=== PATIENT | female | born 1950 | race Caucasian/White ===

== ENCOUNTER 2021-02-17 11:50 | Emergency (ER) | payer MEDICARE, SELFPAY ==
[2021-02-17] VITALS (16 sets, daily range): BP systolic 85–155; BP diastolic 51–69; PULSE 60–90; RESP 14–22; TEMP 36.9; O2SAT 91–97; BMI 34.3
[2021-02-17 12:55] LABS: INR 1.1 (0.9-1.3); Prothrombin Time 12.6 SECONDS (10.1-12.7)
[2021-02-17 13:01] LABS: Alanine Aminotransferase 15 IU/L (<35); Albumin 3.5 g/dL (3.5-5.0); Albumin Globulin Ratio 1.1 (1.0-2.8); Alkaline Phosphatase 74 U/L (38-126); Aspartate Aminotransferase 27 IU/L (14-36); BUN Creatinine Ratio 20.4 (6-22); Blood Urea Nitrogen 21 mg/dL (7-17); Calcium 9.4 mg/dL (8.4-10.2); Carbon Dioxide 23 mmol/L (22-32); Chloride 105 mmol/L (98-107); Estimated Glomerular Filt Rate 53.1 mL/min (>60); Globulin 3.1 g/dL (1.7-4.1); Glucose 99 mg/dL (80-110); HEMOLYSIS < 15 (0-50); Potassium 3.7 mmol/L (3.4-5.1); Sodium 135 mmol/L (137-145); Total Protein 6.6 g/dL (6.3-8.2)
[2021-02-17 13:02] LABS: Add Manual Diff / Slide Review NO; Basophils Absolute Auto 100 /uL (0-100); Basophils Percent Auto 0.7 % (0-2); Eosinophils Absolute Auto 200 /uL (0-450); Hematocrit 38.5 % (36-46); Lymphocytes Absolute Auto 500 /uL (1100-4500); Mean Corpuscular HGB Conc 33.6 % (30-36); Mean Corpuscular Hemoglobin 32.2 PG (26-34); Mean Corpuscular Volume 95.6 fL (80-100); Monocytes Absolute Auto 400 /uL (0-900); Monocytes Percent Auto 5.7 % (3-14); Neutrophils Absolute Auto 6700 /uL (1500-7000); Neutrophils Percent Auto 85.6 % (50-75); Platelet Count 187 X10^3/uL (150-400); Red Blood Cell Count 4.03 X10^6/uL (4.0-5.2); Red Cell Distribution Width 13.4 % (11.6-14.8); White Blood Cell Count 7.9 X10^3/uL (4.5-11.0)
[2021-02-17] MEDS: SODIUM CHLORIDE 0.9% 1,000 ML 1000 ML IV (13:36)
--- NOTE | 2021-02-17 14:06 | ED.NAVMDI ---
HPI - Nausea/Vomiting/Diarrhea General Chief complaint: Nausea/Vomiting/Diarrhea Stated complaint: BEEN IN BED FOR BASICALLY A MONTH Time Seen by Provider: 02/17/21 13:08 Source: patient and family (Daughter) Mode of arrival: Wheelchair Limitations: no limitations History of Present Illness HPI Narrative: Patient is a 70-year-old female who is here in the emergency department with her daughter for evaluation of a decrease in activities, frequent urination, weakness. The symptoms have been going on for the past month. Daughter states that the reason they came in today was this is the 1st time that they had time to come in. The patient's daughter states that the patient has been urinating frequently. Gets up multiple times during the night to urinate. States that the only time that she gets up out of bed is to go and smoke and also to go in urinate. Has had decreased oral intake of both food and liquids. Patient states that she has no complaints. She is at her baseline mental status per her daughter who is at bedside. Related Data Previous Rx's Medication Instructions Recorded cephalexin 500 mg PO BID 7 Days #14 cap 02/17/21 nystatin 1 applic TOPICAL TID #30 g 02/17/21 Allergies Allergy/AdvReac Type Severity Reaction Status Date / Time Sulfa (Sulfonamide Allergy Verified 02/17/21 11:55 Antibiotics) Review of Systems Constitutional Constitutional: Denies headache(s) and Reports weakness ENT Ears, Nose, Mouth, and Throat: Denies headache(s) Cardiovascular Cardiovascular: Denies chest pain and Denies dyspnea Respiratory Respiratory: Denies dyspnea Gastrointestinal Gastrointestinal: Denies abdominal pain and Denies vomiting Genitourinary Comments: Urinary frequency Musculoskeletal Comments: Muscle weakness Neurologic Neurologic: Reports confusion (This is not new), Denies headache(s) and Reports weakness Psychiatric Psychiatric: Reports confusion (This is not new) Hematologic/Lymphatic On Anticoagulants: No Patient History Medical History Seizure disorder Surgical History No pertinent past surgical history Social History Smoking Status: Current every day smoker Smoking Status: Current every day smoker alcohol intake frequency: holidays/special occasions only Substance Use Type: does not use Exam Initial Vital Signs Initial Vital Signs: Vital Signs Temperature 98.4 F 02/17/21 11:55 Pulse Rate 79 02/17/21 11:55 Respiratory Rate 14 02/17/21 11:55 Blood Pressure 95/51 L 02/17/21 11:55 Pulse Oximetry 93 02/17/21 11:55 Const General: disheveled Other: Confused HENMT Head: normal to inspection and normocephalic Eyes General: appearance normal, both eyes and all related structures Resp Effort & Inspection: normal respiratory effort Auscultation: clear to auscultation bilaterally Cardio Rate: regular rate Rhythm: regular rhythm GI Inspection: non-distended Palpation: soft Skin Other: Patient with redness and superficial skin breakdown in between her legs in her upper thighs. Neuro General: patient alert, patient awake, oriented (Person and place but does not know year) and moves all extremities Extrem General: capillary refill normal Psych Appearance: disheveled Course Orders Ordered: ED Orders 02/17/21 12:35 Complete Blood Count AUTO DIFF Stat Comprehensive Metabolic Panel Stat Prothrombin Time INR Stat 02/17/21 13:36 Consult to [facility] [place] - [employer]ist Stat 02/17/21 14:10 Urinalysis and Microscopic Stat Urine Culture Stat 02/17/21 14:15 CT head/brain wo con Stat 02/17/21 15:19 Consult to Home Health Stat Discontinued Medications Cephalexin HCl (Cephalexin 250 Mg Capsule) 500 mg PO NOW ONE Stop: 02/17/21 15:33 Last Admin: 02/17/21 15:49 Dose: 500 mg Documented by: [email or web address] Sodium Chloride (Normal Saline 0.9%) 1,000 mls @ 1,000 mls/hr IV BOLUS ONE Stop: 02/17/21 14:35 Last Infusion: 02/17/21 16:23 Dose: 0 mls/hr Documented by: [email or web address] Admin: 02/17/21 13:36 Dose: 1,000 mls/hr Documented by: [email or web address] Vital Signs Vital signs: Vital Signs - 8 hr 02/17/21 11:55 02/17/21 12:42 02/17/21 12:46 Temperature 98.4 F Pulse Rate 79 68 69 Respiratory Rate 14 19 16 Blood Pressure 95/51 L 154/62 H Pulse Oximetry 93 94 93 02/17/21 13:00 02/17/21 13:30 02/17/21 13:35 Temperature Pulse Rate 77 64 65 Respiratory Rate 22 17 17 Blood Pressure 135/63 Pulse Oximetry 91 94 02/17/21 14:00 02/17/21 14:33 02/17/21 14:35 Temperature Pulse Rate 60 62 62 Respiratory Rate 17 Blood Pressure 155/56 H Pulse Oximetry 96 95 96 02/17/21 15:00 02/17/21 15:30 02/17/21 15:31 Temperature Pulse Rate 60 60 61 Respiratory Rate 15 17 17 Blood Pressure 154/69 H 147/65 H Pulse Oximetry 97 95 95 02/17/21 16:00 02/17/21 16:36 02/17/21 16:37 Temperature Pulse Rate 68 90 90 Respiratory Rate 22 Blood Pressure 85/54 L Pulse Oximetry 95 97 93 02/17/21 16:48 Temperature Pulse Rate 74 Respiratory Rate 18 Blood Pressure 89/59 L Pulse Oximetry 94 MDM - Nausea/Vomiting/Diarrhea Lab Data Attestation: I reviewed the patient's lab results. Result diagrams: 02/17/21 12:35 02/17/21 12:35 Labs: Lab Results 02/17/21 02/17/21 02/17/21 Range/Units 12:35 12:35 12:35 WBC 7.9 (4.5-11.0) X10^3/uL RBC 4.03 (4.0-5.2) X10^6/uL Hgb 13.0 (12.0-16.0) g/dL Hct 38.5 (36-46) % MCV 95.6 (80-100) fL MCH 32.2 (26-34) PG MCHC 33.6 (30-36) % RDW 13.4 (11.6-14.8) % Plt Count 187 (150-400) X10^3/uL Neut % (Auto) 85.6 H (50-75) % Lymph % (Auto) 6.0 L (25-40) % Morgan % (Auto) 5.7 (3-14) % Eos % (Auto) 2.0 (2-4) % Baso % (Auto) 0.7 (0-2) % Neut # (Auto) 6700 (1404-4600) /uL Lymph # (Auto) 500 L (4422-9041) /uL Morgan # (Auto) 400 (0-900) /uL Eos # (Auto) 200 (0-450) /uL Baso # (Auto) 100 (0-100) /uL PT 12.6 (10.1-12.7) SECONDS INR 1.1 (0.9-1.3) Sodium 135 L (137-145) mmol/L Potassium 3.7 (3.4-5.1) mmol/L Chloride 105 (98-107) mmol/L Carbon Dioxide 23 (22-32) mmol/L BUN 21 H (7-17) mg/dL Creatinine 1.03 (0.52-1.04) mg/dL Estimated GFR 53.1 L (>60) mL/min BUN/Creatinine Ratio 20.4 (6-22) Glucose 99 (80-110) mg/dL Calcium 9.4 (8.4-10.2) mg/dL Total Bilirubin 1.0 (0.2-1.3) mg/dL AST 27 (14-36) IU/L ALT 15 (<35) IU/L Alkaline Phosphatase 74 (38-126) U/L Total Protein 6.6 (6.3-8.2) g/dL Albumin 3.5 (3.5-5.0) g/dL Globulin 3.1 (1.7-4.1) g/dL Albumin/Globulin Ratio 1.1 (1.0-2.8) Urine Color Urine Appearance Urine pH (4.5-8.0) Ur Specific [place] (1.000-1.035) Urine Protein (Negative) Urine Glucose (UA) (Negative) g/dL Urine Ketones (NEGATIVE) Urine Occult Blood (Negative) Urine Nitrate (Negative) Urine Bilirubin (NEGATIVE) Urine Urobilinogen (0.2) E.U./dL Ur Leukocyte Esterase (NEGATIVE) Urine RBC (0-5/HPF) Urine WBC (0-5/HPF) Ur Squamous Epith Cells (0-5/HPF) Urine Bacteria (None) Ur Culture Indicated? 02/17/21 Range/Units 14:10 WBC (4.5-11.0) X10^3/uL RBC (4.0-5.2) X10^6/uL Hgb (12.0-16.0) g/dL Hct (36-46) % MCV (80-100) fL MCH (26-34) PG MCHC (30-36) % RDW (11.6-14.8) % Plt Count (150-400) X10^3/uL Neut % (Auto) (50-75) % Lymph % (Auto) (25-40) % Morgan % (Auto) (3-14) % Eos % (Auto) (2-4) % Baso % (Auto) (0-2) % Neut # (Auto) (6754-7257) /uL Lymph # (Auto) (1100-5827) /uL Morgan # (Auto) (0-900) /uL Eos # (Auto) (0-450) /uL Baso # (Auto) (0-100) /uL PT (10.1-12.7) SECONDS INR (0.9-1.3) Sodium (137-145) mmol/L Potassium (3.4-5.1) mmol/L Chloride (98-107) mmol/L Carbon Dioxide (22-32) mmol/L BUN (7-17) mg/dL Creatinine (0.52-1.04) mg/dL Estimated GFR (>60) mL/min BUN/Creatinine Ratio (6-22) Glucose (80-110) mg/dL Calcium (8.4-10.2) mg/dL Total Bilirubin (0.2-1.3) mg/dL AST (14-36) IU/L ALT (<35) IU/L Alkaline Phosphatase (38-126) U/L Total Protein (6.3-8.2) g/dL Albumin (3.5-5.0) g/dL Globulin (1.7-4.1) g/dL Albumin/Globulin Ratio (1.0-2.8) Urine Color Yellow Urine Appearance Sl cloudy Urine pH 5.5 (4.5-8.0) Ur Specific [place] 1.010 (1.000-1.035) Urine Protein Negative (Negative) Urine Glucose (UA) Negative (Negative) g/dL Urine Ketones Trace H (NEGATIVE) Urine Occult Blood 1+ H (Negative) Urine Nitrate Negative (Negative) Urine Bilirubin Negative (NEGATIVE) Urine Urobilinogen 0.2 (0.2) E.U./dL Ur Leukocyte Esterase 2+ H (NEGATIVE) Urine RBC 1-5/hpf (0-5/HPF) Urine WBC 5-10/hpf H (0-5/HPF) Ur Squamous Epith Cells 1-5 /hpf (0-5/HPF) Urine Bacteria Occasional (0-1) (None) Ur Culture Indicated? Specimen cultured Imaging Data CT scan - head: Radiologist's Impression: [address] [id number] Scan ReportSigned Patient: Trinity Ames AMR#: [id number]: 1950cct:[id number]/Sex: 70 / FDate of Service: 02/17/21Loc: EDAccession Number: [id number] Procedure: CT head/brain wo con Ordering Provider: Chadwick Najera D.O. PROCEDURE: CT HEAD/BRAIN WO CON INDICATIONS: hx of cancer and weakness TECHNIQUE: Noncontrast 4.5 mm thick angled axial sections acquired from the foramen magnum to the vertex, with coronal and sagittal reformats. For radiation dose reduction, the following was used: automated exposure control, adjustment of mA and/or kV according to patient size. COMPARISON: None. FINDINGS: Image quality: Excellent. CSF spaces: Basal cisterns are patent. No extra-axial fluid collections. Ventricles are normal in size and shape but there is a cystic structure separate from the posterior 3rd of the left lateral ventricle, above the atrium of the lateral ventricle, with either calcification or possible small surgical clips at the interface best seen on sagittal imaging. However, a craniotomy a site is not seen and therefore calcifications are considered the more likely cause. No adjacent vasogenic edema or similar smaller lesion elsewhere is found.. Brain: No midline shift. No intracranial masses or hemorrhage. Serna-white matter interface is normal. Skull and face: Calvarium and visualized facial bones are intact, without suspicious lesions. Sinuses: Visualized sinuses and mastoids are clear. IMPRESSION: A comparison brain MRI or CT scan is not available for review. There is a large cyst-like structure within the posterior parietal lobe measuring up to 4.1 x 3.3 x 4.1 cm without adjacent vasogenic edema or visualized mural nodularity on this noncontrast CT scan. The clinical history indicates prior history of cancer. There may be additional information available regarding outside prior CT or MR scanning of the brain. Obtaining such studies would be valuable for review. Additionally, contrast-enhanced MR scanning of the brain likely is warranted given this finding. Cystic neoplasm, either primary or metastatic, is a potential cause. Dictated by: Patrick Armstrong M.D. on 02/17/2021 at 14:39 Approved by: Patrick Armstrong M.D. on 02/17/2021 at 14:44 MDM Narrative Medical decision making narrative: Presenting symptoms today seem to been going on for least a month. She is at her baseline neurologic status per her daughter who is at bedside. Her urinalysis is consistent with a urinary tract infection given her urinary frequency. Will treat her with antibiotics for this. Her skin in her upper inner thighs is also consistent with breakdown most likely from frequent urination. It has the appearance of a diaper rash. Also has foul smell consistent with a yeast infection. Will send home with nystatin cream we also discussed the use of barrier creams. Patient and daughter was seen by social work. We will try to get home health establish for the patient. Also attempted to contact the patient's primary doctor to move up an appointment and they stated that they will contact the patient to do so. Given the chronicity of the patient's symptoms I do not feel that admission to the hospital is warranted at this visit. They were given return precautions and follow-up instructions. They expressed understanding and agreement. Discharge Plan Departure Patient Disposition: Home Clinical Impression: Urinary tract infection, Skin yeast infection Instructions: DI for Urinary Tract Infection (UTI) Activity Restrictions/Additional Instructions: Recommend that you take the antibiotics as directed. Also recommend the nystatin cream for the redness area between your legs. I also recommend barrier cream and treating the area like a diaper rash. You should be receiving a call from your primary doctor's office for a new appointment. Return to the emergency department for any new or worsening symptoms Prescriptions: New cephalexin 500 mg capsule 500 mg PO BID 7 Days Qty: 14 RF: 0 nystatin 100,000 unit/gram cream 1 applic topical TID Qty: 30 RF: 2 Referrals: Av Brizuela MD [Primary Care Provider] -
--- NOTE | 2021-02-17 14:15 | DI.CT.S_ITS ---
PROCEDURE: CT HEAD/BRAIN WO CON INDICATIONS: hx of cancer and weakness TECHNIQUE: Noncontrast 4.5 mm thick angled axial sections acquired from the foramen magnum to the vertex, with coronal and sagittal reformats. For radiation dose reduction, the following was used: automated exposure control, adjustment of mA and/or kV according to patient size. COMPARISON: None. FINDINGS: Image quality: Excellent. CSF spaces: Basal cisterns are patent. No extra-axial fluid collections. Ventricles are normal in size and shape but there is a cystic structure separate from the posterior 3rd of the left lateral ventricle, above the atrium of the lateral ventricle, with either calcification or possible small surgical clips at the interface best seen on sagittal imaging. However, a craniotomy a site is not seen and therefore calcifications are considered the more likely cause. No adjacent vasogenic edema or similar smaller lesion elsewhere is found.. Brain: No midline shift. No intracranial masses or hemorrhage. Serna-white matter interface is normal. Skull and face: Calvarium and visualized facial bones are intact, without suspicious lesions. Sinuses: Visualized sinuses and mastoids are clear. IMPRESSION: A comparison brain MRI or CT scan is not available for review. There is a large cyst-like structure within the posterior parietal lobe measuring up to 4.1 x 3.3 x 4.1 cm without adjacent vasogenic edema or visualized mural nodularity on this noncontrast CT scan. The clinical history indicates prior history of cancer. There may be additional information available regarding outside prior CT or MR scanning of the brain. Obtaining such studies would be valuable for review. Additionally, contrast-enhanced MR scanning of the brain likely is warranted given this finding. Cystic neoplasm, either primary or metastatic, is a potential cause. Dictated by: Patrick Armstrong M.D. on 02/17/2021 at 14:39 Approved by: Patrick Armstrong M.D. on 02/17/2021 at 14:44
[2021-02-17 14:36] LABS: Appearance Urine UA SL CLOUDY; Bilirubin Urine UA NEGATIVE (NEGATIVE); Color Urine UA YELLOW; Glucose Urine UA NEGATIVE (Negative); Ketones Urine UA TRACE (NEGATIVE); Leukocyte Esterase Urine UA 2+ (NEGATIVE); Nitrite Urine UA NEGATIVE (Negative); Occult Blood Urine UA 1+ (Negative); Protein Urine UA NEGATIVE (Negative); Urobilinogen Urine UA 0.2 E.U./dL (0.2)
[2021-02-17 14:41] LABS: pH Urine UA 5.5 (4.5-8.0)
[2021-02-17 14:56] LABS: Bacteria Urine Occasional (0-1); Culture Indicated Urine Specimen Cultured; RBC Urine 1-5/HPF (0-5/HPF); Squamous Epithelial Cell Urine 1-5 /HPF (0-5/HPF); WBC Urine 5-10/HPF (0-5/HPF)
--- NOTE | 2021-02-17 15:22 | CM.SWNOTE ---
Addendum entered by Jonathan Guzman 02/17/21 17:28: SAFETY REPRESENTATIVE faxes referral to [facility] at [phone]. JARAD Cheek Original Note: SAFETY REPRESENTATIVE Note SAFETY REPRESENTATIVE consult requested for patient. Patient is a 70 y/o female who presents to this ED for increasing weakness, increased difficulty with mobility, and urinary concerns. Patient presents to this ED with daughter, and her insurance is listed as [employer]. SAFETY REPRESENTATIVE and Dr. Najera enter room and meet with patient and daughter. Patient is oriented to self and place. Patient is unable to state the year but does state the current president on second guess. Patient is unable to state why she is in ED. Most history comes from patient?s daughter, CURTIS Nance. Lee Ann explains that patient lives with Lee Ann, and they are finishing a fully ADA bathroom in the lower half of their home. Lee Ann reports the lower half of home is very accessible. 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 Lee Ann reports that patient?s current level of confusion is consistent with baseline. Lee Ann reports that patient has been sleeping ?most of the time? every day for past 3 weeks. Lee Ann reports that patient is only getting out of bed for urination and to smoke. Lee Ann reports that patient is stating she needs to urinate every 15 minutes. Lee Ann reports a decline in patient?s mobility, stating that she was previously able to move readily with the help of her cane, and in the past 4 weeks has had difficulty moving with help of a walker. Lee Ann reports that they have an appt. with Dr. Brizuela at [facility], but that they will not be able to meet with him for nearly a month and a half. SAFETY REPRESENTATIVE offers to contact office, and Lee Ann agrees. Lee Ann explains she works in LTC and is familiar with resources. Lee Ann explains that patient?s insurance won?t cover a home care attendant. SAFETY REPRESENTATIVE discusses HH. Patient agrees to HH. Lee Ann states no preference and SAFETY REPRESENTATIVE informs Lee Ann that HH agency on rotation is [facility]. All parties agreeable to referral. SAFETY REPRESENTATIVE calls IF, who state that they will try to get an earlier appt. for patient call Lee Ann if that is possible. [facility] states they will inform SAFETY REPRESENTATIVE if they are able to do this as well. SAFETY REPRESENTATIVE obtains signature on F2F form from ED provider Dr. Najera and provides Medicare choice list to patient and daughter. SAFETY REPRESENTATIVE updates patient, daughter, and ED Provider Dr. Najera on the above. Plan: Per Dr. Najera, current plan is for patient to D/C to home with follow up from PCP and home health. SAFETY REPRESENTATIVE to send referral to [facility]. JARAD Cheek
[2021-02-17] MEDS: cephALEXin 250 MG CAPSULE 500 MG PO (15:49)
== END 2021-02-17 16:52 | disposition home or self-care (01) ==
PROVIDERS: Emergency Provider Emergency Medicine; PCP Family Medicine
DX: N39.0 Urinary tract infection, site not specified (principal); B37.2 Candidiasis of skin and nail; R41.0 Disorientation, unspecified
CPT/HCPCS: 36415; 70450; 80053; 81001; 85025; 85610; 87086; 96360; 96361; 99284

== ENCOUNTER → 2021-03-11 14:19 | Outpatient (CLI) | payer MEDICARE, SELFPAY | PROVIDERS: PCP Family Medicine; Referring Provider Family Medicine; Visit Provider Nurse Practitioner Family | DX: L30.4 Erythema intertrigo (principal); R32 Unspecified urinary incontinence; F03.91 Unspecified dementia, unspecified severity, with behavioral disturbance | CPT/HCPCS: 99203; 99214 ==

== ENCOUNTER 2021-03-17 09:26 | Emergency (ER) | payer MEDICARE, SELFPAY ==
[2021-03-17 09:49] VITALS: BP 101/55; PULSE 60; RESP 16; TEMP 36.8; O2SAT 91; BMI 34.3
--- NOTE | 2021-03-17 10:04 | ED.GENADULT ---
HPI - General Adult General Chief complaint: Dental/Oral Stated complaint: LT CHEEK SWOLLEN Time Seen by Provider: 03/17/21 09:53 Source: patient and family Mode of arrival: Ambulatory Limitations: no limitations History of Present Illness HPI narrative: Patient is a 70-year-old female who I evaluated the emergency department in the past for other reasons who is here with her daughter for evaluation of swelling to the left side of her face. Daughter states she noticed it this morning. The patient has no symptoms. She does have poor dentition and has seen a dentist in the past but most of her dental issues have been on the right side and the swelling today is on the left side. Patient is not have any problems breathing or swallowing. There is no skin changes over the area. Related Data Previous Rx's Medication Instructions Recorded nystatin 1 applic TOPICAL TID #30 g 02/17/21 fluconazole [Diflucan] 150 mg PO DAILY #3 tab 03/17/21 penicillin V potassium 500 mg PO QID 7 Days #28 tab 03/17/21 Allergies Allergy/AdvReac Type Severity Reaction Status Date / Time Sulfa (Sulfonamide Allergy Unknown Verified 03/17/21 09:49 Antibiotics) Review of Systems Constitutional Constitutional: Denies fever(s) ENT Comments: No dental pain, swelling left side of face Cardiovascular Cardiovascular: Denies dyspnea Respiratory Respiratory: Denies dyspnea Integumentary/Breasts Skin/Breast: Denies rash Neurologic Neurologic: Reports system reviewed and no additional complaints, except as documented Hematologic/Lymphatic On Anticoagulants: No Allergic/Immunologic Allergic/Immunologic: Reports system reviewed and no additional complaints, except as documented Patient History Medical History Seizure disorder Surgical History No pertinent past surgical history Social History Smoking Status: Current every day smoker Smoking Status: Current every day smoker tobacco type: cigarettes alcohol intake frequency: holidays/special occasions only Substance Use Type: does not use Exam Initial Vital Signs Initial Vital Signs: Vital Signs Temperature 98.2 F 03/17/21 09:49 Pulse Rate 60 03/17/21 09:49 Respiratory Rate 16 03/17/21 09:49 Blood Pressure 101/55 L 03/17/21 09:49 Pulse Oximetry 91 03/17/21 09:49 Const General: cooperative and comfortable HENMT Head: normal to inspection and normocephalic Ears: TM's normal bilaterally Nose: external nose normal Face and sinus: no erythema and fluctuance (Left maxillary area) Mouth: moist mucous membranes Teeth and gingiva: poor dentition Throat: posterior oropharynx normal Resp Effort & Inspection: normal respiratory effort Auscultation: clear to auscultation bilaterally Cardio Rate: regular rate Rhythm: regular rhythm Skin Lesions: no lesions Rashes: no rashes Neuro General: patient alert and patient awake Extrem General: normal to inspection Psych Appearance: grossly normal Course Vital Signs Vital signs: Vital Signs - 8 hr 03/17/21 09:49 Temperature 98.2 F Pulse Rate 60 Respiratory Rate 16 Blood Pressure 101/55 L Pulse Oximetry 91 Medical Decision Making [facility] Narrative Medical decision making narrative: Patient does have poor dentition however there is no specific signs of dental infections on the inside of her mouth. There is no abscess noted. There is a 2 cm area of fluctuance in the left mandibular area 0 which is consistent with a dental abscess. There is no signs of any trauma. Her left eye is unremarkable. Plan will be is to place her on antibiotics. Will also give Diflucan as she frequently gets yeast infections with antibiotics. Patient and daughter were instructed that she does need to contact her dentist for follow-up. They were given return precautions. They expressed understanding and agreement. Discharge Plan Departure Patient Disposition: Home Clinical Impression: Dental abscess Instructions: Tooth Abscess Activity Restrictions/Additional Instructions: The findings today are consistent with a left-sided dental abscess. Unfortunately there is nothing that can be drained here in the emergency department. I do recommend that you contact her dentist for a follow-up. We will start on antibiotics. Return to the emergency department for any new or worsening symptoms Prescriptions: New penicillin V potassium 500 mg tablet 500 mg PO QID 7 Days Qty: 28 RF: 0 fluconazole [Diflucan] 150 mg tablet 150 mg PO DAILY Qty: 3 RF: 0 No Action nystatin 100,000 unit/gram cream 1 applic topical TID Qty: 30 RF: 2 Referrals: Av Brizuela MD [Primary Care Provider] -
[2021-03-17 10:12] VITALS: BP 97/61; PULSE 60; RESP 20; O2SAT 92
== END 2021-03-17 10:18 | disposition home or self-care (01) ==
PROVIDERS: Emergency Provider Emergency Medicine; PCP Family Medicine
DX: K04.7 Periapical abscess without sinus (principal)
CPT/HCPCS: 99281

== ENCOUNTER 2022-01-23 11:09 | Emergency (ER) | payer MEDICARE, OTHER, SELFPAY ==
[2022-01-23] VITALS (11 sets, daily range): BP systolic 128–148; BP diastolic 61–84; PULSE 69–77; O2SAT 92–95
--- NOTE | 2022-01-23 12:05 | DI.RAD.S_ITS ---
PROCEDURE: XR CHEST 1V INDICATIONS: suspected sepsis TECHNIQUE: One view of the chest was acquired. COMPARISON: None. FINDINGS: Surgical changes and devices: Left CT injectable port a catheter. Lungs and pleura: No consolidation, pleural effusions or pneumothorax. Mediastinum: Mediastinal contours appear normal. Heart size is normal. Bones and chest wall: No suspicious bony lesions. Overlying soft tissues appear unremarkable. Elevation of the right diaphragm. IMPRESSION: No acute cardiopulmonary abnormality. Dictated by: Jayden Holder M.D. on 01/23/2022 at 12:54 Approved by: Jayden Holder M.D. on 01/23/2022 at 12:54
--- NOTE | 2022-01-23 12:08 | ED.SEPSIS ---
HPI - Sepsis General Chief Complaint: Altered Mental Status Mode of arrival: Ambulatory Source: patient Limitations: no limitations Evaluation Sepsis Screen: No Definite Risk Sepsis Infection Criteria Present: None Narrative: 71-year-old female smoker with history of dementia and vulvar cancer that has been untreated for the past 5 years presents with her daughter who is her POA. She had been treated as an outpatient with antibiotics for a urinary tract infection but symptoms are worsening. She lives at home with family and has been in decline for least the last week. She stopped pursuing treatment for her cancer because she just wanted to be done. She has had no obvious fever or chills. She has had no chest pain or shortness of breath. She has been fatigued and had little to eat or drink over the course of at least the past few days. The patient is a very poor historian and any history comes from daughter Review of Systems Review of Systems ROS Unobtainable: All systems reviewed & are unremarkable except as noted in HPI and below Patient History Medical History Seizure disorder Surgical History No pertinent past surgical history S/P total abdominal hysterectomy Social History Smoking Status: Current every day smoker Smoking Status: Current every day smoker tobacco type: cigarettes alcohol intake frequency: holidays/special occasions only Substance Use Type: does not use Exam Narrative Exam Narrative: GENERAL: [71] year old patient appears stated age. Well-developed patient, in mild distress. Pleasantly confused, clearly unwell HEAD: Atraumatic. Normocephalic. EYES: Pupils equal round and reactive. Extraocular motions intact. No scleral icterus. No injection or drainage. ENT: Dry mucous membranes Nose without bleeding, purulent drainage. Throat without erythema, tonsillar hypertrophy or exudate. Airway patent. NECK: Trachea midline. Non tender CARDIOVASCULAR: Regular rate and rhythm without murmurs, gallops, or rubs. RESPIRATORY: Clear to auscultation. Breath sounds equal bilaterally. No wheezes, rales, or rhonchi. GASTROINTESTINAL: Abdomen soft, non-tender, nondistended. PELVIC: External genitalia examined with female nursing member of the legislative council, family permission. There is extensive fungating lesion in perineum c/w prior diagnosis of vulvar cancer. EXTREMITIES: No edema or joint tenderness. BACK: Nontender without deformity or crepitance. No flank tenderness. NEURO: Pleasantly confused, cranial nerves 2-12 grossly intact SKIN: No rash or erythema of visible areas Initial Vital Signs Initial Vital Signs: Vital Signs Blood Pressure 128/66 01/23/22 11:39 Course Orders Ordered: Discontinued Medications Sodium Chloride (Normal Saline 0.9%) 1,000 mls @ 1,000 mls/hr IV BOLUS ONE Stop: 01/23/22 13:04 Last Infusion: 01/23/22 13:22 Dose: 0 mls/hr Documented by: Admin: 01/23/22 12:18 Dose: 1,000 mls/hr Documented by: ANA Sodium Chloride (Normal Saline 0.9%) 1,000 mls @ 1,000 mls/hr IV BOLUS ONE Stop: 01/23/22 15:10 Last Infusion: 01/23/22 15:22 Dose: 0 mls/hr Documented by: Admin: 01/23/22 14:14 Dose: 1,000 mls/hr Documented by: PRISCILLA Lorazepam (Lorazepam 2 Mg/Ml Inj) 0.5 mg IV NOW ONE Stop: 01/23/22 12:10 Last Admin: 01/23/22 12:17 Dose: 0.5 mg Documented by: ANA Lorazepam (Lorazepam 2 Mg/Ml Inj) 0.5 mg IV NOW ONE Stop: 01/23/22 12:32 Last Admin: 01/23/22 12:30 Dose: 0.5 mg Documented by: ANA Consultations Consultation #1: discussed with family and call placed to PRINTED CIRCUIT BOARD PCB DESIGNER for bedside exam to help give some context and expectations to family for assistant terminal manager planning Consultation #2: Dr. Brizuela (PCP) contacted to help with assistant terminal manager planning. JOB ANALYSIS MANAGER consulted, please see their note for details Vital Signs Vital signs: Vital Signs - 8 hr 01/23/22 11:39 01/23/22 12:35 01/23/22 12:39 Pulse Rate 77 74 Blood Pressure 128/66 148/67 H Pulse Oximetry 95 92 01/23/22 14:10 01/23/22 14:11 Pulse Rate 72 74 Blood Pressure 136/84 Pulse Oximetry 94 94 Sepsis Guideline Criteria Level 1 - Infection Sepsis Infection Criteria Present: None Treatment Initiated Antibiotics:: IV antimicrobials will be initiated as soon as possible after recognition of sepsis state and within one hour for both sepsis and septic shock. MDM - Sepsis Lab Data Result diagrams: 01/23/22 11:55 01/23/22 15:50 Labs: Lab Results 01/23/22 01/23/22 01/23/22 Range/Units 11:55 11:55 11:55 WBC 8.3 (4.5-11.0) X10^3/uL RBC 4.44 (4.0-5.2) X10^6/uL Hgb 13.7 (12.0-16.0) g/dL Hct 42.0 (36-46) % MCV 94.5 (80-100) fL MCH 30.8 (26-34) PG MCHC 32.6 (30-36) % RDW 13.8 (11.6-14.8) % Plt Count 265 (150-400) X10^3/uL Neut % (Auto) 83.3 H (50-75) % Lymph % (Auto) 8.5 L (25-40) % [place] % (Auto) 6.8 (3-14) % Eos % (Auto) 0.6 L (2-4) % Baso % (Auto) 0.8 (0-2) % Neut # (Auto) 6900 (2790-2254) /uL Lymph # (Auto) 700 L (2758-9776) /uL [place] # (Auto) 600 (0-900) /uL Eos # (Auto) 100 (0-450) /uL Baso # (Auto) 100 (0-100) /uL Sodium 139 (137-145) mmol/L Potassium 5.5 H (3.4-5.1) mmol/L Chloride 110 H (98-107) mmol/L Carbon Dioxide 17 L (22-32) mmol/L BUN 61 H (7-17) mg/dL Creatinine 2.78 H (0.52-1.04) mg/dL Estimated GFR 16.8 L (>60) mL/min BUN/Creatinine Ratio 21.9 (6-22) Glucose 118 H (80-110) mg/dL Lactate 1.3 (0.7-2.1) mmol/L Calcium 9.8 (8.4-10.2) mg/dL Total Bilirubin 0.6 (0.2-1.3) mg/dL AST 32 (14-36) IU/L ALT 20 (<35) IU/L Alkaline Phosphatase 85 (38-126) U/L Total Protein 8.4 H (6.3-8.2) g/dL Albumin 4.6 (3.5-5.0) g/dL Globulin 3.8 (1.7-4.1) g/dL Albumin/Globulin Ratio 1.2 (1.0-2.8) Lipase 84 (23-300) U/L Procalcitonin 0.13 (<0.5) ng/mL SARS-CoV-2 (PCR) (Negative) 01/23/22 01/23/22 Range/Units 13:49 15:50 WBC (4.5-11.0) X10^3/uL RBC (4.0-5.2) X10^6/uL Hgb (12.0-16.0) g/dL Hct (36-46) % MCV (80-100) fL MCH (26-34) PG MCHC (30-36) % RDW (11.6-14.8) % Plt Count (150-400) X10^3/uL Neut % (Auto) (50-75) % Lymph % (Auto) (25-40) % [place] % (Auto) (3-14) % Eos % (Auto) (2-4) % Baso % (Auto) (0-2) % Neut # (Auto) (5527-0057) /uL Lymph # (Auto) (3104-8560) /uL [place] # (Auto) (0-900) /uL Eos # (Auto) (0-450) /uL Baso # (Auto) (0-100) /uL Sodium 140 (137-145) mmol/L Potassium 5.1 (3.4-5.1) mmol/L Chloride 113 H (98-107) mmol/L Carbon Dioxide 17 L (22-32) mmol/L BUN 58 H (7-17) mg/dL Creatinine 2.34 H (0.52-1.04) mg/dL Estimated GFR 20.6 L (>60) mL/min BUN/Creatinine Ratio 24.8 H (6-22) Glucose 92 (80-110) mg/dL Lactate (0.7-2.1) mmol/L Calcium 8.5 (8.4-10.2) mg/dL Total Bilirubin (0.2-1.3) mg/dL AST (14-36) IU/L ALT (<35) IU/L Alkaline Phosphatase (38-126) U/L Total Protein (6.3-8.2) g/dL Albumin (3.5-5.0) g/dL Globulin (1.7-4.1) g/dL Albumin/Globulin Ratio (1.0-2.8) Lipase (23-300) U/L Procalcitonin (<0.5) ng/mL SARS-CoV-2 (PCR) Negative (Negative) Imaging Data CT scan - abdomen/pelvis: Radiologist's Impression: [address] [address] [address] Scan Report Addendum Patient: Trinity Ames MR#: [id number] : 1950 Acct:[id number] Age/Sex: 71 / F Date of Service: 01/23/22 Loc: ED Accession Number: [id number] ?? Procedure: CT abdomen pelvis wo con Ordering Provider: Arben Eaton D.O. ADDENDUMThis report includes an Addendum and supersedes previous reports for this exam. ? ? ? PROCEDURE:? CT ABDOMEN PELVIS WO CON ? INDICATIONS:? acute kidney injury, obstruction? ? TECHNIQUE:? Noncontrast 5 mm thick sections acquired from the diaphragms to the symphysis.? 5 mm coronal and sagittal reformats were then performed.? For radiation dose reduction, the following was used:? automated exposure control, adjustment of mA and/or kV according to patient size.? ? COMPARISON:? None. ? FINDINGS:? Image quality:? Breathing motion artifact somewhat limits evaluation. ? ABDOMEN:? Lung bases:? Lung bases are clear.? Heart size is normal.? ? Solid organs:? Liver is normal in size.? Calcified gallstones are visualized within the gallbladder fundus.? There are likely stones within the cystic duct as well which is poorly characterized given motion artifact.? Pancreas is normal in contours.? Spleen is normal in size.? The right adrenal gland is unremarkable.? There is thickening of the medial limb of the left adrenal gland.? However, no discrete nodule is visualized.? Kidneys are normal in size, without hydronephrosis or nephrolithiasis.? ? Peritoneum and bowel:? Unenhanced bowel loops demonstrate normal wall thickness and caliber.? Liquid stool is present within the colon. There are scattered sigmoid diverticula. No evidence for diverticulitis.? No free fluid or air.? ? Nodes and vessels:? No retroperitoneal or mesenteric adenopathy by size criteria.? Aorta and inferior vena cava are normal in caliber.? There are scattered atheromatous calcifications throughout the aorta and iliac arteries bilaterally. ? Miscellaneous:? No ventral hernias.? ? ? PELVIS:? Genitourinary:? Bladder wall thickness is normal.? ? Miscellaneous:? No inguinal hernias or adenopathy.? ? Bones:? No suspicious bony lesions.? No vertebral body compression fractures.? Left hip arthroplasty is grossly intact. ? IMPRESSION:? ? 1. No acute intra-abdominal findings.? Diverticulosis.? No acute diverticulitis.? Liquid stool within the distal colon. ? 2. Questionable thickening of the medial limb of the left adrenal gland.? Although no discrete mass is visualized, adenoma or neoplasm cannot be excluded.? If further characterization is warranted, adrenal mass protocol CT could be used.? ? ? Dictated by: Adeline Brunson M.D. on 01/23/2022 at 13:03 ? ? Approved by: Adeline Brunson M.D. on 01/23/2022 at 13:31 ? ? ? ADDENDUM: ? 3. Cholelithiasis and stones likely present within the cystic duct.? No gallbladder wall thickening or biliary ductal dilatation to suggest choledocholithiasis.? ? Dictated by: Adeline Brunson M.D. on 01/23/2022 at 14:01 ? ? Approved by: Adeline Brunson M.D. on 01/23/2022 at 14:02 ? Addendum Dictated By: Adeline Brunson MD Addendum Signed By: Addendum Cosigned By: DD/ /05/1406 TD/TT: 01/23/2209/05/1406 PROCEDURE:? CT ABDOMEN PELVIS WO CON ? INDICATIONS:? acute kidney injury, obstruction? ? TECHNIQUE:? Noncontrast 5 mm thick sections acquired from the diaphragms to the symphysis.? 5 mm coronal and sagittal reformats were then performed.? For radiation dose reduction, the following was used:? automated exposure control, adjustment of mA and/or kV according to patient size.? ? COMPARISON:? None. ? FINDINGS:? Image quality:? Breathing motion artifact somewhat limits evaluation. ? ABDOMEN:? Lung bases:? Lung bases are clear.? Heart size is normal.? ? Solid organs:? Liver is normal in size.? Calcified gallstones are visualized within the gallbladder fundus.? There are likely stones within the cystic duct as well which is poorly characterized given motion artifact.? Pancreas is normal in contours.? Spleen is normal in size.? The right adrenal gland is unremarkable.? There is thickening of the medial limb of the left adrenal gland.? However, no discrete nodule is visualized.? Kidneys are normal in size, without hydronephrosis or nephrolithiasis.? ? Peritoneum and bowel:? Unenhanced bowel loops demonstrate normal wall thickness and caliber.? Liquid stool is present within the colon. There are scattered sigmoid diverticula. No evidence for diverticulitis.? No free fluid or air.? ? Nodes and vessels:? No retroperitoneal or mesenteric adenopathy by size criteria.? Aorta and inferior vena cava are normal in caliber.? There are scattered atheromatous calcifications throughout the aorta and iliac arteries bilaterally. ? Miscellaneous:? No ventral hernias.? ? ? PELVIS:? Genitourinary:? Bladder wall thickness is normal.? ? Miscellaneous:? No inguinal hernias or adenopathy.? ? Bones:? No suspicious bony lesions.? No vertebral body compression fractures.? Left hip arthroplasty is grossly intact. ? IMPRESSION:? ? 1. No acute intra-abdominal findings.? Diverticulosis.? No acute diverticulitis.? Liquid stool within the distal colon. ? 2. Questionable thickening of the medial limb of the left adrenal gland.? Although no discrete mass is visualized, adenoma or neoplasm cannot be excluded.? If further characterization is warranted, adrenal mass protocol CT could be used.? ? ? Dictated by: Adeline Brunson M.D. on 01/23/2022 at 13:03 ? ? Approved by: Adeline Brunson M.D. on 01/23/2022 at 13:31? MDM Narrative Medical decision making narrative: Patient with chronic illness and untreated cancer presents appearing ill. She has significant kidney injury, presumably prerenal as she appears quite dehydrated and numbers do improve with fluids. Patient would not want to consider any significant intervention, surgery or treatment for her vulvar cancer. We have at extensive involvement of various resources and multiple conversations at the bedside with daughter (MILLICENT). We have early considered admitting the patient, continue to hydrate, trending lab work to help arrange for home nursing and hospice, however despite discussion of risks and benefit POSumeet would highly prefer to take the patient home. She clearly has an understanding of the risks and benefits of this and understands that she may return immediately for any change Discharge Plan Departure Patient Disposition: Home Clinical Impression: Acute dehydration, Acute kidney injury, Vulvar cancer Instructions: DI for Dehydration -- Adult, Acute Kidney Injury Activity Restrictions/Additional Instructions: *You have been diagnosed with [acute kidney injury, dehydration, vulvar cancer *What to do: *Please continue to take your regular medications as directed. [ ] New medication prescriptions sent to your pharmacy: [ ] [ ] New medication written as a paper prescription [ x] No new medications given *Please follow up with your primary care provider in 2-3 days, call for an appointment. Let them know you were seen in the Emergency Department and that we ask that you be seen in follow up. We will electronically transmit a record of today's note if your PCP is in our system *Please consult information from [facility] [place]Hospice and Dr. Brizuela have been contacted, please expect to hear from Hospice in the next 48-72 hours *Return to Emergency Department if you should have any new, worsening or concerning symptoms, such as [fever greater than 101 F, shaking chills, worsening pain, persistent vomiting or other bothersome symptoms] Prescriptions: No Action nystatin 100,000 unit/gram cream 1 applic topical TID Qty: 30 2RF fluconazole [Diflucan] 150 mg tablet 150 mg PO DAILY Qty: 3 0RF Referrals: Av Brizuela MD [Primary Care Provider] -
[2022-01-23] MEDS: LORazepam 2 MG/ML INJ 0.5 MG IV ×2 (12:17→12:30)
[2022-01-23] MEDS: SODIUM CHLORIDE 0.9% 1,000 ML 1000 ML IV ×2 (12:18→14:14)
[2022-01-23 12:23] LABS: Add Manual Diff / Slide Review NO; Basophils Absolute Auto 100 /uL (0-100); Basophils Percent Auto 0.8 % (0-2); Eosinophils Absolute Auto 100 /uL (0-450); Eosinophils Percent Auto 0.6 % (2-4); Hemoglobin 13.7 g/dL (12.0-16.0); Lymphocytes Absolute Auto 700 /uL (1100-4500); Lymphocytes Percent Auto 8.5 % (25-40); Mean Corpuscular HGB Conc 32.6 % (30-36); Mean Corpuscular Hemoglobin 30.8 PG (26-34); Mean Corpuscular Volume 94.5 fL (80-100); Monocytes Absolute Auto 600 /uL (0-900); Monocytes Percent Auto 6.8 % (3-14); Neutrophils Absolute Auto 6900 /uL (1500-7000); Neutrophils Percent Auto 83.3 % (50-75); Platelet Count 265 X10^3/uL (150-400); Red Blood Cell Count 4.44 X10^6/uL (4.0-5.2); Red Cell Distribution Width 13.8 % (11.6-14.8); White Blood Cell Count 8.3 X10^3/uL (4.5-11.0)
[2022-01-23 12:29] LABS: Alanine Aminotransferase 20 IU/L (<35); Albumin 4.6 g/dL (3.5-5.0); Albumin Globulin Ratio 1.2 (1.0-2.8); Alkaline Phosphatase 85 U/L (38-126); Aspartate Aminotransferase 32 IU/L (14-36); BUN Creatinine Ratio 21.9 (6-22); Bilirubin Total 0.6 mg/dL (0.2-1.3); Blood Urea Nitrogen 61 mg/dL (7-17); Calcium 9.8 mg/dL (8.4-10.2); Carbon Dioxide 17 mmol/L (22-32); Chloride 110 mmol/L (98-107); Estimated Glomerular Filt Rate 16.8 mL/min (>60); Globulin 3.8 g/dL (1.7-4.1); Glucose 118 mg/dL (80-110); HEMOLYSIS < 15 (0-50); Lipase 84 U/L (23-300); Sodium 139 mmol/L (137-145); Total Protein 8.4 g/dL (6.3-8.2)
[2022-01-23 12:30] LABS: Lactate (Lactic Acid) 1.3 mmol/L (0.7-2.1); Potassium 5.5 mmol/L (3.4-5.1)
--- NOTE | 2022-01-23 12:36 | DI.CT.S_ITS ---
PROCEDURE: CT ABDOMEN PELVIS WO CON INDICATIONS: acute kidney injury, obstruction? TECHNIQUE: Noncontrast 5 mm thick sections acquired from the diaphragms to the symphysis. 5 mm coronal and sagittal reformats were then performed. For radiation dose reduction, the following was used: automated exposure control, adjustment of mA and/or kV according to patient size. COMPARISON: None. FINDINGS: Image quality: Breathing motion artifact somewhat limits evaluation. ABDOMEN: Lung bases: Lung bases are clear. Heart size is normal. Solid organs: Liver is normal in size. Calcified gallstones are visualized within the gallbladder fundus. There are likely stones within the cystic duct as well which is poorly characterized given motion artifact. Pancreas is normal in contours. Spleen is normal in size. The right adrenal gland is unremarkable. There is thickening of the medial limb of the left adrenal gland. However, no discrete nodule is visualized. Kidneys are normal in size, without hydronephrosis or nephrolithiasis. Peritoneum and bowel: Unenhanced bowel loops demonstrate normal wall thickness and caliber. Liquid stool is present within the colon. There are scattered sigmoid diverticula. No evidence for diverticulitis. No free fluid or air. Nodes and vessels: No retroperitoneal or mesenteric adenopathy by size criteria. Aorta and inferior vena cava are normal in caliber. There are scattered atheromatous calcifications throughout the aorta and iliac arteries bilaterally. Miscellaneous: No ventral hernias. PELVIS: Genitourinary: Bladder wall thickness is normal. Miscellaneous: No inguinal hernias or adenopathy. Bones: No suspicious bony lesions. No vertebral body compression fractures. Left hip arthroplasty is grossly intact. IMPRESSION: 1. No acute intra-abdominal findings. Diverticulosis. No acute diverticulitis. Liquid stool within the distal colon. 2. Questionable thickening of the medial limb of the left adrenal gland. Although no discrete mass is visualized, adenoma or neoplasm cannot be excluded. If further characterization is warranted, adrenal mass protocol CT could be used. Dictated by: Adeline Brunson M.D. on 01/23/2022 at 13:03 Approved by: Adeline Brunson M.D. on 01/23/2022 at 13:31
[2022-01-23 12:46] LABS: Procalcitonin 0.13 ng/mL (<0.5)
--- NOTE | 2022-01-23 12:50 | PC.NURSE ---
Went to place catheter, pt premedicated with ativan per Dr Eaton for anxiety related to shantell care. Pt has hx of vulvar cancer. Pt was laid back supine and noted large cavernous opening to right shantell area. anatomy was difficult to discern, yellow slough noted to bose of lesion. and depth indeterminate. Dr Eaton brought into room to visualize. Catheter insertion cancelled.
[2022-01-23 14:28] LABS: COVID19 -Nasal RAPID Negative (Negative)
--- NOTE | 2022-01-23 14:45 | PC.NURSE ---
Spoke w/ Dr. Brizuela, reviewed results. Dr. Brizuela states that pt is fully hospice appropriate and that is an appropriate course of action. ETHICS OFFICER aware.
--- NOTE | 2022-01-23 15:55 | PM.CN ---
History of Present Illness Consult details Date Patient Seen: 01/23/22 Time Patient Seen: 15:30 Chief complaint: uti getting worse; dr. guzmán referred Reason for consult: untreated vulvar cancer Requesting provider: Arben Eaton Narrative: This patient is a 71yo P1 with a history of vulvar cancer, presenting to the emergency room with CINDY and found to have a large vulvar mass. The patient and her daughter report that she is incontinent of urine at baseline, and presents to the ED with UTI symptoms. The patient's daughter reports that her mother had an excision of her vulvar cancer 4 years ago through the [facility] system, and that she had been assigned a course of chemoradiation but stopped [facility] through due to side effects. The patient has declined follow up or exams since, and per her daughter has complained of worsening vulvar pain. The patient denies fevers, chills, or change in bowel habits, and has been incontinent of urine for some amount of time. The patient recently got ativan in the ED to facilitate her CT scan and is an incomplete historian, but reports a PELON at age 39 due to endometriosis with no prior abnormal pap smears or pelvic infections. It is unclear if the patient has a history of HPV infection. She denies any other contributory inset cutter history. Meds Home Medications and Allergies Home Medications Medication Instructions Recorded Confirmed Type nystatin 100,000 unit/gram topical 1 applic TOPICAL TID #30 g 02/17/21 Rx cream fluconazole 150 mg tablet 150 mg PO DAILY #3 tab 03/17/21 Rx (Diflucan) Allergies Allergy/AdvReac Type Severity Reaction Status Date / Time Sulfa (Sulfonamide Allergy Unknown Verified 01/23/22 11:34 Antibiotics) Review of Systems Constitutional Constitutional: Reports system reviewed and no additional complaints, except as documented Gastrointestinal Gastrointestinal: Reports as per HPI Genitourinary Genitourinary: Reports as per HPI Exam Vital Signs (past 8 hours): - 01/23/22 11:39 01/23/22 12:35 01/23/22 12:39 Pulse Rate 77 74 Blood Pressure 128/66 148/67 H Pulse Oximetry 95 92 01/23/22 14:10 01/23/22 14:11 01/23/22 14:30 Pulse Rate 72 74 72 Blood Pressure 136/84 144/71 H Pulse Oximetry 94 94 92 01/23/22 15:00 01/23/22 15:01 01/23/22 15:30 Pulse Rate 69 69 77 Blood Pressure 130/61 136/70 Pulse Oximetry 92 92 93 Const General: cooperative and comfortable GI Palpation: soft and No tender Other: scar tissue visible from prior excision on right labia, and labia enlarged and swollen with visibly firm underlying mass. Patient declines further exam. Objective Labs Result Diagrams: 01/23/22 11:55 01/23/22 15:50 Labs: Laboratory Results - last 24 hr 01/23/22 01/23/22 01/23/22 11:55 11:55 11:55 WBC 8.3 RBC 4.44 Hgb 13.7 Hct 42.0 MCV 94.5 MCH 30.8 MCHC 32.6 RDW 13.8 Plt Count 265 Neut % (Auto) 83.3 H Lymph % (Auto) 8.5 L [place] % (Auto) 6.8 Eos % (Auto) 0.6 L Baso % (Auto) 0.8 Neut # (Auto) 6900 Lymph # (Auto) 700 L [place] # (Auto) 600 Eos # (Auto) 100 Baso # (Auto) 100 Sodium 139 Potassium 5.5 H Chloride 110 H Carbon Dioxide 17 L BUN 61 H Creatinine 2.78 H Estimated GFR 16.8 L BUN/Creatinine Ratio 21.9 Glucose 118 H Lactate 1.3 Calcium 9.8 Total Bilirubin 0.6 AST 32 ALT 20 Alkaline Phosphatase 85 Total Protein 8.4 H Albumin 4.6 Globulin 3.8 Albumin/Globulin Ratio 1.2 Lipase 84 Procalcitonin 0.13 SARS-CoV-2 (PCR) 01/23/22 13:49 WBC RBC Hgb Hct MCV MCH MCHC RDW Plt Count Neut % (Auto) Lymph % (Auto) [place] % (Auto) Eos % (Auto) Baso % (Auto) Neut # (Auto) Lymph # (Auto) [place] # (Auto) Eos # (Auto) Baso # (Auto) Sodium Potassium Chloride Carbon Dioxide BUN Creatinine Estimated GFR BUN/Creatinine Ratio Glucose Lactate Calcium Total Bilirubin AST ALT Alkaline Phosphatase Total Protein Albumin Globulin Albumin/Globulin Ratio Lipase Procalcitonin SARS-CoV-2 (PCR) Negative [facility] Medical History Seizure disorder Surgical History No pertinent past surgical history S/P total abdominal hysterectomy Tobacco & Substance Use Smoking Status: Current every day smoker Assessment & Plan Assessment and plan (1) Vulvar cancer: Problem details: This patient presents with dehydration as managed by the ED, and I was consulted to discuss the patient's vulvar cancer with her and her daughter. The patient's CINDY precludes imaging with contrast today, and the patient declines admission. She does not appear to have urinary obstruction, and declines detailed exam. We discussed that further imaging is likely to be more helpful, and I encouraged the patient to consider imaging to aid in planning for symptom relief if not for more definitive management. We discussed in broad strokes palliative radiation vs pelvic exenteration. Though the patient emphatically declines treatment, we discussed a inset cutter oncology consult if onlyto plan for management of symptoms such as urinary obstruction that might be expected to develop with ongoing progression. The patient's daughter vocalized understanding, and plans to follow up with their PCP. She was encouraged to call with any questions. Status: Acute Time Spent With Patient Critical Care time: I spent a total of [] minutes of critical care time on this patient's care today; this time is exclusive of procedural time.
[2022-01-23 16:11] LABS: BUN Creatinine Ratio 24.8 (6-22); Blood Urea Nitrogen 58 mg/dL (7-17); Calcium 8.5 mg/dL (8.4-10.2); Carbon Dioxide 17 mmol/L (22-32); Chloride 113 mmol/L (98-107); Estimated Glomerular Filt Rate 20.6 mL/min (>60); Glucose 92 mg/dL (80-110); HEMOLYSIS < 15 (0-50); Potassium 5.1 mmol/L (3.4-5.1); Sodium 140 mmol/L (137-145)
--- NOTE | 2022-01-23 16:21 | PC.NURSE ---
Pt up to commode. Did not void. Back to bed with linen change.
--- NOTE | 2022-01-23 16:56 | CM.SWNOTE ---
SOFTWARE RECRUITER Note SOFTWARE RECRUITER receives consult and enters room to meet with patient. ED provider informs SOFTWARE RECRUITER that patient is DNR and seeking comfort care. Patient has cancer dx and is not seeking treatment or surgery. application support puts in call to PCP Dr. Brizuela and Hospice is recommended for patient. Present with patient is patient's daughter/DPOA. Patient is 71 y/o female. Patient resides at daughter's home. Patient reports she is able to ambulate well, transfer from bed to bathroom and be independent with ADLs. Daughter reports that she prepares meals and brings them to patient. Patient endorses her preference to return home with Hospice, daughter indicates agreement. SOFTWARE RECRUITER provides patient and daughter with DME information, [facility] brochure, and senior resource guide. SOFTWARE RECRUITER calls [facility] and submits referral via phone, SOFTWARE RECRUITER to fax clinical referral. Plan: Patient to d/c to home with hospice referral with daughter. Patient to return to ED if symptoms worsen. JARAD Jeronimo
--- NOTE | 2022-01-23 17:06 | PC.NURSE ---
Pt had 400ml urine output prior to discharge. Urine had a small amount of BM mixed in so UA not sent
== END 2022-01-23 17:00 | disposition home or self-care (01) ==
PROVIDERS: Emergency Provider Emergency Medicine; PCP Family Medicine
DX: E86.0 Dehydration (principal); N17.9 Acute kidney failure, unspecified; C51.9 Malignant neoplasm of vulva, unspecified; F17.210 Nicotine dependence, cigarettes, uncomplicated; Z20.822 Contact with and (suspected) exposure to COVID-19
CPT/HCPCS: 36415; 71045; 74176; 80048; 80053; 83605; 83690; 84145; 85025; 87040; 87635; 93005; 93010; 96361; 96374; 99284; C9803; J2060

== ENCOUNTER → 2022-01-29 12:39 | Outpatient (CLI) | payer MEDICARE, OTHER, SELFPAY ==
--- NOTE | 2022-01-29 | DI.MRI.S_ITS ---
PROCEDURE: MR ABDOME PELVIS O CON INDICATIONS: RULE OUT METASTATIC CANCER TECHNIQUE: Coronal HASTE, axial 2D FLASH in- and [id number]; axial breath-hold T2 FSE; dynamic axial VIBE during IV gadolinium administration; postgadolinium coronal VIBE or 2D FLASH with fat saturation from the hepatic dome to the iliac crests. COMPARISON: [facility], CT, CT ABDOMEN PELVIS WO CON, 01/23/2022, 12:43. FINDINGS: Image quality: Fair. Lung bases: No pleural effusion. Asymmetric elevation of the right hemidiaphragm. Solid organs: Liver: No focal lesion. No suspicious enhancement. Gallbladder: Filled with gallstones. Bile ducts: No dilatation. Pancreas: No peripancreatic fluid collection. No pancreatic ductal dilatation. Spleen: No splenomegaly. Adrenal glands: Left adrenal nodule measuring approximately 2.2 cm, (12/06). There is signal dropout on the opposed phase images consistent with microscopic fat. This is in keeping with a benign adenoma. Kidneys: No hydronephrosis. Several T2 hyperintense renal cysts. The largest measuring 4.5 cm in the left kidney. No suspicious enhancement. Nodes and vessels: No enlarged lymph nodes. No abdominal aortic aneurysm. Bowel and peritoneum: No dilated loops of bowel identified. Diverticulosis. No free fluid. Pelvis: Uterus is absent. There is a tract along the right labia measuring of 4.1 x 0.7 cm, (25/176). There is peripheral enhancement. On the prior noncontrast CT there is a small amount air in this region. Bones and soft tissues: Left hip arthroplasty. No focal lesion. IMPRESSION: Image quality is somewhat degraded by artifact and motion. 1. Left adrenal nodule measuring approximately 2.2 cm demonstrates microscopic fat and is in keeping with a benign adenoma. 2. Suspect small sinus tract at the right labia with possible phlegmon. -Recommend targeted exam and possible targeted ultrasound. 3. Diverticulosis. No free fluid. 4. Gallbladder is filled with gallstones. No biliary or pancreatic ductal dilatation. Dictated by: Derian Avila M.D. on 01/29/2022 at 19:18 Approved by: Derian Avila M.D. on 01/29/2022 at 19:36
== END ==
PROVIDERS: PCP Family Medicine; Referring Provider Family Medicine; Visit Provider Family Medicine
DX: R56.9 Unspecified convulsions; G93.0 Cerebral cysts; C51.9 Malignant neoplasm of vulva, unspecified; D35.02 Benign neoplasm of left adrenal gland; K80.20 Calculus of gallbladder without cholecystitis without obstruction; K57.90 Diverticulosis of intestine, part unspecified, without perforation or abscess without bleeding
CPT/HCPCS: 72197; 74183; A9579